=== PATIENT | male | born 2005 | race Caucasian/White ===

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

== ENCOUNTER 2023-10-27 18:00 | Outpatient (CLI) | payer BC, SELFPAY ==
[2023-10-27 18:43] LABS: Basophils % 0.6 % (0.1-2.0); Eosinophils # 0.1 K/mm3 (0.0-0.4); Eosinophils % 1.8 % (0.1-12.0); Hematocrit 51.1 % (42.0-52.0); Hemoglobin 17.3 g/dL (14.1-18.0); Lymphocytes # 1.7 K/mm3 (0.7-4.5); Lymphocytes % 26.5 % (10-50); Mean Corpuscular HGB Conc 33.9 g/dL (31.8-35.4); Mean Corpuscular Hemoglobin 32.2 pg (27.0-31.2); Mean Corpuscular Volume 94.9 fl (80-94); Monocytes # 0.5 K/mm3 (0.1-1.0); Monocytes % 7.7 % (1.7-9.3); Neutrophils # 3.9 K/mm3 (1.8-7.8); Neutrophils % 63.3 % (37.0-80.0); Platelet Count 178 K/mm3 (142-424); Red Blood Count 5.38 M/mm3 (4.60-6.20); White Blood Count 6.2 K/mm3 (4.5-13.0)
[2023-10-27 18:46] LABS: Chloride 108 mmol/L (98-107); Sodium 141 mmol/L (136-145)
[2023-10-27 18:48] LABS: Alanine Aminotransferase 35 U/L (12-78); Alkaline Phosphatase 86 U/L (38-126); Aspartate Amino Transferase 40 U/L (17-59); Bilirubin,Total 2.7 mg/dl (0.2-1.3); Blood Urea Nitrogen 14 mg/dl (9-20); Estimated Glomerular Filt Rate 123 ml/min (>60); GFR (African American) 149 ML/MIN (>60)
[2023-10-27 18:49] LABS: Albumin Level 4.5 g/dl (3.5-5.0); Albumin/Globulin Ratio 1.7 (1.1-1.8); Calcium 9.4 mg/dl (8.4-10.2); Carbon Dioxide 26 mmol/L (22.0-30.0); Chol/HDL Ratio 3.4 (1-3.5); Cholesterol 165 mg/dl (140-200); Globulin 2.6 g/dL (1.3-3.2); Glucose 82 mg/dl (74-100); HDL Cholesterol 48 mg/dl (40-60); Total Protein,Serum 7.1 g/dl (6.3-8.2); Triglycerides 53 mg/dl (30-150); VLDL Cholesterol 11 mg/dL (0-40)
[2023-10-27 19:00] LABS: Direct LDL Cholesterol 81.61 mg/dL (100-129)
[2023-10-27 19:07] LABS: 25-OH Vitamin D, Total 36.2 ng/mL (30-100)
[2023-10-27 19:19] LABS: Thyroid Stimulating Hormone 1.76 uIU/mL (0.465-4.68)
[2023-10-27 21:08] LABS: Hemoglobin A1C 4.8 % (4.0-6.0)
== END 2023-10-27 23:59 | disposition home or self-care (01) ==
LOC: LAB.DROPOF 10-28 10:10
PROVIDERS: PCP Student in an Organized Health Care Education/Training Program; Visit Provider Student in an Organized Health Care Education/Training Program
DX: J45.909 Unspecified asthma, uncomplicated (principal); Z68.30 Body mass index [BMI] 30.0-30.9, adult; Z83.3 Family history of diabetes mellitus; Z13.1 Encounter for screening for diabetes mellitus; Z13.220 Encounter for screening for lipoid disorders; E66.9 Obesity, unspecified; Z13.29 Encounter for screening for other suspected endocrine disorder; Z83.49 Family history of other endocrine, nutritional and metabolic diseases; Z13.21 Encounter for screening for nutritional disorder; M79.671 Pain in right foot
CPT/HCPCS: 80053; 80061; 82306; 83036; 84443; 85025

== ENCOUNTER 2023-10-28 08:10 | Outpatient (CLI) | payer BC, SELFPAY ==
[2023-10-28 18:25] LABS: Reticulocyte % (Auto) 1.2 % (0.9-3.2)
[2023-10-28 18:45] LABS: Bilirubin,Direct 0.5 mg/dl (0.0-0.4); Bilirubin,Indirect 2.3 mg/dL (0.0-0.9); Bilirubin,Total 2.8 mg/dl (0.2-1.3); Bilirubin,Unconjugated 2.2 mg/dL (0.0-1.1); Lactate Dehydrogenase 197 U/L (313-618)
[2023-10-30 09:24] LABS: Haptoglobin 46 mg/dL (17-317)
== END 2023-10-28 23:59 | disposition home or self-care (01) ==
LOC: LAB.DROPOF 10-30 08:11
PROVIDERS: PCP Student in an Organized Health Care Education/Training Program; Visit Provider Student in an Organized Health Care Education/Training Program
DX: E80.6 Other disorders of bilirubin metabolism (principal)
CPT/HCPCS: 82247; 82248; 83010; 83615; 85044

== ENCOUNTER 2025-01-14 15:25 | Outpatient (RCR) | payer BC, SELFPAY ==
--- NOTE | 2025-01-14 16:50 | HMH.PTOPEV ---
PT Outpatient Evaluation Rehab PT Outpatient Evaluation Start: 01/14/25 15:31 Freq: Status: Active Protocol: Document 01/14/25 15:32 TRENA (Rec: 01/14/25 16:48 TRENA [id number]) E-signed By Erik Lee, PT Outpatient Therapy Subjective History Subjective History Pt is a 19 yom who is referred to [facility] outpatient PT with complaints b/l foot pain. The pt reports that this pain began approximately 1 year ago after her began working in the [employer] department of [employer] [facility]. Pt reports that he walks nearly 6 miles/day. He reports that he wore Crocs when he first started, but he has recently invested in a pair of Hokas with Dr. Aj monten[place]ro which has helped his symptoms. Pt reports that his pain is worst with his first step in the morning and feels like he is walking on bruises. Reports that ice helps his symptoms, but he does not ice regularly. Pt also reports that he had pain in his achilles frequently when he played basketball in high school. PMH: None Occupation: EVS at [employer] New diagnosis of No cancer in past 12 months? Chief Complaint Pain,Stiff Symptom Type Sharp,Stabbing Symptoms Relieved By Ice,Brace/Support Symptoms Aggravated Standing,Walking By Prior Functional None Limitations Current Functional Standing,Squatting,Recreation Activity,Walking,Stairs, Limitations Balance Symptom Description Intermittent,Activity Dependent Level of pain today 5 (0-10) Pain scale - at its 0 best (0-10) Pain scale - at its 9 worst (0-10) Ankle/Foot Eval Gait Observation General Gait Pattern Antalgic Gait Observation Palpation Tenderness bilateral Ankle/Foot Palpation Tenderness Findings Ankle/Foot Palpation TTP 3/4 to b/l Calcaneal Tubercle, PF, and achilles Overall Comment insertion. ROM Ankle/Foot 0 Dorsiflexion w/Knee Flexed Active Range of Motion (degrees) Ankle/Foot 0 Dorsiflexion W/Knee Flexed Passive Range Motion (degrees) Ankle/Foot Plantar WNL Flexion Active Range of Motion (degrees) Ankle/Foot Eversion WNL Active Range of Motion (degrees) Ankle/Foot Inversion WNL Active Range of Motion (degrees) Ankle/Foot ROM Soft Tissue Tightness Limitations MMT Ankle Dorsiflexion 4 Good Strength Grade Ankle Plantarflexion 4- Good- Strength Grade Foot Eversion 5 Normal Strength Grade Foot Inversion 5 Normal Strength Grade Lower Extremity Functional Index Activities Today, do you or would you have any difficulty at all with: a.Any of your usual No difficulty work, housework or school activities b. Your usual A little bit of difficulty hobbies, recreational or sporting activities c. Getting into or No difficulty out of the bath d. Walking between Moderate difficulty rooms e. Putting on your No difficulty shoes or socks f. Squatting A little bit of difficulty g. Lifting an object A little bit of difficulty , like a bag of groceries from the floor h. Performing light No difficulty activities around your home i. Performing heavy Moderate difficulty activities around your home j. Getting into or Moderate difficulty out of a car k. Walking 2 blocks Moderate difficulty l. Walking a mile Moderate difficulty m. Going up or down A little bit of difficulty 10 stairs (about 1 flight of stairs) n. Standing for 1 Moderate difficulty hour o. Sitting for 1 Moderate difficulty hour p. Running on even A little bit of difficulty ground q. Running on uneven A little bit of difficulty ground r. Making sharp A little bit of difficulty turns while running fast s. Hopping Moderate difficulty t. Rolling over in A little bit of difficulty bed LEFI Score Lower Extremity 56 Functional Index Score Miscellaneous Dx PT Eval Objective Objective + Windlass Test Outpatient Therapy Assessment Impairments Problems/ Palpation Tenderness,Impaired Range of Motion,Impaired Impairmments Strength,Impaired Gait Pattern,Impaired Walking, Impaired Standing,Impaired Stair Climbing,Impaired Incline Stepping,Impaired Squatting,Impaired Recreational Activities,Impaired Work Activities, Subjective C/O Pain Prognosis Rehab Potential Good Clinical Impression Consistent with Yes Diagnosis Consistent with B/L Plantar Fasciitis Additional details: M72.2 Pt also presents with tight heel cords and mild Achilles tendinitis b/l Short Term Goals Number of Weeks 4 Decreased Palpation Yes: 1-2/4 to TTP assessment above Tenderness Increase Range of Yes: 6-8 degrees of Active DF Motion Increase Strength Yes: 4+/5 to B DF and PF Improve Gait Pattern Yes: Normalized Gait mechanics without Assistive Device Decrease Subjective Yes: 5/10 with above assessment C/O Pain Patient to be Ind w/ Yes HEP [employer] Goals Number of Weeks 8 Decreased Palpation Yes: 0/4 to TTP assessment above Tenderness Increase Range of Yes: 10-15 degrees of DF b/l Motion Increase Strength Yes: 5/5 to B ankle complexes Increase Ability to Yes: >6 miles in a day without increasing symptoms Walk Improve Tolerance to Yes: Normal day's work without increasing symptoms Work Activities Improve LEFI Score Yes: >70 Decrease Subjective Yes: 2-3/10 without increasing symptoms C/O Pain Improve Self Care/ Yes Self Management Patient to be Ind w/ Yes Advanced HEP Outpatient Therapy Plan of Care Treatment Plan May Include Therapeutic Exercise Yes Including Home Exercise Program Manual Therapy Yes Techniques Neuromuscular Re- Yes education Therapeutic Yes Activities to Return to Previous Functional/Work Level Gait Training Yes Dry Needling Yes Thermal Modalities Yes Electrical Yes Stimulation Iontophoresis Yes Massage Yes Manual Lymphatic Yes Drainage Eval/Re-Eval Yes Frequency Times per week 2 Duration Number of Weeks 8 Addendums This patient is a No candidate for social or vocational rehab ? Patient/Guardian Yes verbally acknowledges understanding of treatment program and consents to further treatment? Patient/Guardian Yes verbally acknowledges understanding of diagnosis, prognosis and goals for treatment? Eval Complexity PT Charges 28734 - Moderate Complexity Shoulder/Elbow Eval Shoulder Objective Measurements Elbow Objective Measurements PHYSICIAN CERTIFICATION: I certify the specified therapy services for [place] are required, authorized, and reviewed every 30 days.
== END 2025-01-14 23:59 | disposition home or self-care (01) ==
LOC: PT 15:25
PROVIDERS: PCP Nurse Practitioner Family; Visit Provider Nurse Practitioner Family
DX: M72.2 Plantar fascial fibromatosis (principal); M54.50 Low back pain, unspecified
CPT/HCPCS: 97162; 97530